=== PATIENT | female | born 1935 | race Caucasian/White ===

== ENCOUNTER 2020-05-03 02:50 | Inpatient (IN) | payer MEDICARE, SELFPAY ==
[~2020-05-03] VITALS: Ht 160 cm; Wt 55.8 kg
[2020-05-03] VITALS (12 sets, daily range): BP systolic 55–134; BP diastolic 17–87
--- NOTE | 2020-05-03 02:54 | NUR ---
PT BIBA AND TAKEN TO ER BED 8.
--- NOTE | 2020-05-03 03:05 | NUR ---
85 YR OLD FEMALE BROUGHT IN BY AMBULANCE TO THE ER WITH CHIEF COMPLAINT OF SHORTNESS OF BREATH. PT IS LETHARGIC AND NON-VERBAL. PATIENT IS UNABLE TO FOLLOW COMMANDS AND HAS A BLANK STARE. PATIENT HAS INCREASED WORK OF BREATHING WITH SHALLOW DEPTH. PATIENT HAS WHEEZES UPON EXPIRATION. SKIN IS COOL AND PALE. PATIENT HAS WEAK PULSES. BED IS LOCKED IN LOWEST POSITION WITH 2 SIDE RAILS UP FOR SAFETY. WILL CONTINUE TO MONITOR. HISTORY- HTN, CAD, HLD, CABG ALLERGIES- NARCAN, NSAIDS, NYSTATIN
--- NOTE | 2020-05-03 03:10 | NUR ---
RT AT BEDSIDE.
--- NOTE | 2020-05-03 03:20 | NUR ---
RT has placed pt on 15L NRB w/ 15L humidified NC. Pt current oxygen level 79%.
--- NOTE | 2020-05-03 03:25 | NUR ---
EKG PERFORMED AT BEDSIDE. EKG READS SINUS OR ECTOPIC ATRIAL RHYTHM @ 81
[2020-05-03] MEDS ORDERED: ASCO500W4 PO (03:33)
[2020-05-03] MEDS ORDERED: [UNRECOGNIZED DRUG - CODE] PO (03:33)
[2020-05-03] MEDS ORDERED: MAGN400S60 PO (03:33)
[2020-05-03] MEDS ORDERED: SENN-72 PO (03:33)
[2020-05-03] MEDS ORDERED: APIX5TAB4 PO (03:33)
[2020-05-03] MEDS ORDERED: ONDA4TAB PO (03:33)
[2020-05-03] MEDS ORDERED: MAA30 PO (03:33)
[2020-05-03] MEDS ORDERED: SAW/1TAB PO (03:33)
[2020-05-03] MEDS ORDERED: MONT10TA35 PO (03:33)
--- NOTE | 2020-05-03 03:50 | NUR ---
X-Ray at bedside.
[2020-05-03 03:56] LABS: APPEARANCE,URINE CLOUDY (CLEAR); BILIRUBIN,URINE NEGATIVE (NEGATIVE); BLOOD, URINE NEGATIVE (NEGATIVE); COLOR,URINE YELLOW (YELLOW); LEUKOCYTE ESTERASE ,URINE TRACE (NEGATIVE); NITRITE, URINE POSITIVE (NEGATIVE); UGLUCOSE NEGATIVE (NEGATIVE)
--- NOTE | 2020-05-03 04:00 | NUR ---
Per Dr. Lopes administer 1L Bolus at this time.
[2020-05-03 04:05] LABS: C-REACTIVE PROTEIN QUANT 16.6 mg/dL (0.0-0.9)
[2020-05-03 04:06] LABS: HEMATOCRIT 34.3 % (36-48); MEAN CORPUSCULAR HEMOGLOBIN 28 pg (27-31); MEAN CORPUSCULAR HGB CONC 32 g/dL (33-37); MEAN CORPUSCULAR VOLUME 88.2 fL (80-94); PLATELET COUNT (AUTO) 175 K/uL (140-450); RED BLOOD CELL COUNT(AUTO) 3.89 MIL/uL (4.20-5.40); RED CELL DISTRIBUTION WIDTH 26.2 % (11.6-13.7)
[2020-05-03 04:08] LABS: ALBUMIN 2.3 g/dL (3.4-5.0); ANION GAP 16.1 (8-16); ASPARTATE AMINOTRANSFERASE 41 U/L (15-37); CARBON DIOXIDE 21.8 mmol/L (21-32); CHLORIDE 110 mmol/L (98-107); CREATININE 1.2 mg/dL (0.6-1.3); GLUCOSE 164 mg/dL (74-106); SODIUM SERUM 146 mmol/L (136-145); TOTAL BILIRUBIN 0.4 mg/dL (0.0-1.0); UREA NITROGEN, BLOOD 32 mg/dL (7-18)
[2020-05-03 04:10] LABS: WHITE BLOOD COUNT (AUTO) 1.5 K/uL (4.8-10.8)
[2020-05-03 04:11] LABS: POTASSIUM 1.9 mmol/L (3.5-5.1)
[2020-05-03 04:12] LABS: LACTATE DEHYDROGENASE 355 U/L (81-234)
[2020-05-03 04:15] LABS: PROTHROMBIN TIME 12.1 secs (10.8-13.4)
[2020-05-03] MEDS ORDERED: DEXAMETHASONE 10 MG/ML VIAL IVP ONE (04:15)
[2020-05-03] MEDS ORDERED: AZITHROMYCIN 500 MG in DEXTROSE 5% 250 ML IV ONE (04:15)
[2020-05-03] MEDS ORDERED: KCL 20 MEQ/WATER INJ PREMIX 100 ML IV ONE (04:15)
[2020-05-03] MEDS ORDERED: NACL 0.9% 500 ML IV ONE (04:15)
[2020-05-03] MEDS ORDERED: AZITHROMYCIN 500 MG INJ VIAL IV ONE (04:20)
[2020-05-03] MEDS ORDERED: cefTRIAXone 1,000 MG VIAL ONE (04:20)
[2020-05-03 04:46] LABS: RSV NEGATIVE (NEGATIVE)
[2020-05-03] MEDS ORDERED: ASPIRIN 600 MG SUPP RC ONE (04:50)
[2020-05-03 04:54] LABS: LYMPHOCYTES % (MANUAL) 30 % (20-46)
--- NOTE | 2020-05-03 05:00 | NUR ---
PATIENT HAD BROWN LIQUID BOWEL. PERINEAL CARE PERFORMED. SKIN LEFT CLEANED AND DRY. WOUND PICTURES TAKEN ON SACRAL AREA. WOUND DRESSING APPLIED TO SACRAM AREA.
--- NOTE | 2020-05-03 05:24 | NUR ---
Dr. Lopes examining patient.
[2020-05-03] MEDS ORDERED: NOREPINEPHRINE 4 MG/4 ML VIAL IV ONE (05:28)
[2020-05-03 05:41] LABS: RBC,URINE 0-5 /HPF (0-5); WBC,URINE 0-5 /HPF (0-5)
[2020-05-03] MEDS ORDERED: NOREPINEPHRINE 4 MG in DEXTROSE 5% 250 ML IV ONE (06:05)
--- NOTE | 2020-05-03 06:05 | NUR ---
Levophed 4mg IV drip initiated at 2 mcg/min at this time.
[2020-05-03] MEDS ORDERED: ZOLPIDEM 5 MG TAB PO PRN (07:00)
[2020-05-03] MEDS ORDERED: ONDANSETRON 4 MG/2 ML VIAL IVP PRN (07:00)
[2020-05-03] MEDS ORDERED: DOCUSATE SODIUM 100 MG GELCAP PO PRN (07:00)
[2020-05-03] MEDS ORDERED: ALBUTEROL HFA MDI 90 MCG/ACTUATION 8 GM INH PRN (07:00)
[2020-05-03] MEDS ORDERED: ACETAMINOPHEN 325 MG TAB PO PRN (07:00)
[2020-05-03] MEDS ORDERED: HYDROcodone/APAP 5/325 MG 1 TAB TAB PO PRN (07:00)
[2020-05-03] MEDS ORDERED: HEPARIN PER PHARMACY MC PRN (07:00)
[2020-05-03] MEDS ORDERED: LORazepam 2 MG/ML VIAL IM/IVP PRN (07:00)
[2020-05-03] MEDS: NACL 0.9% 1,000 ML IV SCH ×2 (07:00→11:53)
[2020-05-03] MEDS ORDERED: MORPHINE SULFATE 2 MG/ML SYR IVP PRN (07:00)
--- NOTE | 2020-05-03 07:10 | NUR ---
Report provided to BECCA Jane for transfer of care.
[2020-05-03] MEDS ORDERED: hePARIN / DEXT 5% PREMIX 250 ML IV SCH (07:30)
--- NOTE | 2020-05-03 07:30 | NUR ---
PATIENT IS RESTING IN BED, 15L NON REBREATHER, 15L HUMIDIFIED OXYGEN. PATIENT IS NON VERBAL, SLIGHTLY ALERT. SKIN IS COOL, BRACHIAL PULSES ARE FAINT.
--- NOTE | 2020-05-03 07:59 | NUR ---
Dr. Muir is evaluating the patient at bedside.
--- NOTE | 2020-05-03 08:00 | NUR ---
Dr. Wild is evaluating the patient at bedside.
[2020-05-03] MEDS ORDERED: ZINC SULF 220 MG CAP PO SCH (09:00)
[2020-05-03] MEDS ORDERED: VITAMIN D 400 IU TAB PO SCH (09:00)
[2020-05-03] MEDS ORDERED: AZITHROMYCIN 250 MG TAB PO SCH (09:00)
[2020-05-03] MEDS ORDERED: ASCORBIC ACID 500 MG TAB PO SCH (09:00)
--- NOTE | 2020-05-03 09:13 | NUR ---
PATIENT HAS BEEN SCREENED AND CATEGORIZED HIGH NUTRITION RISK. PATIENT WILL BE SEEN WITHIN 1-2 DAYS OF ADMISSION. 05/03/20-05/04/[address]
--- NOTE | 2020-05-03 09:21 | NUR ---
Patient will be admitted to [facility]. Admited to ICU. Will go to room 129. Belongings list completed. Report to DM HUDSON.
--- NOTE | 2020-05-03 09:30 | NUR ---
PATIENT TRANSFERRED FROM ED TO ROOM 129B VIA GURNEY. PATIENT IS LETHARGIC, EYES OPEN,PUPIL 3 MM SLUGGISH, BUT DOES NOT FOLLOW COMMAND, NOR ABLE TO MAKE NEED KNOWN. SPO2 88% AT THIS TIME ON HIGH FLOW 15 LPM NON-REBREATHER AND 7 LPM VIA NC, RESPIRATION LABORED, SHALLOW AND TACHYPNEA. FLACC 0. IV ON LAC 20G, RUNNING 20 MCG/MIN LEVOPHED 4 MG, AND L WRIST 22G, RUNNING HEPARIN DRIP AT 600 UNIT/HR. SKIN WARM TO TOUCH, SACRAL WOUND COVERED WITH OPTIFOAM, DRY AND CLEAN, PURPLE DTI ON L FOOT NOTED, APPLIED PURPLE HEEL PROTECTORS. PATIENT IS INCONTINENT. GENERALIZED WEAKNESS ON BOTH UPPER AND LOWER EXTREMITIES. NON-PITTING EDEMA ON ARMS NOTED. ABDOMEN SOFT AND FLAT. ASSISTED TO POSITIONED PATIENT IN HIGH ORNELAS COMFORTABLY ON BED. CHANGED TO YELLOW GOWN, APPLIED FALL RISK PRECAUTION, ASPIRATION PRECAUTION, AND ENHANCED DROPLET PRECAUTION. TYPE CUTTER APPLIED. SAFETY MEASURES IN PLACE. BED IN LOW POSITION, CALL LIGHT WITHIN REACH.
[2020-05-03 10:49] LABS: ALBUMIN 2.5 g/dL (3.4-5.0); AMYLASE 29 U/L (25-115); ANION GAP 28.1 (8-16); ASPARTATE AMINOTRANSFERASE 47 U/L (15-37); CHLORIDE 118 mmol/L (98-107); CREATININE 1.3 mg/dL (0.6-1.3); GLUCOSE 173 mg/dL (74-106); HDL CHOLESTEROL 50 mg/dL (40-60); LDL (CALC) 38 mg/dL (60-100); LIPASE 118 U/L (73-393); MAGNESIUM 2.3 mg/dL (1.8-2.4); PHOSPHORUS 2.8 mg/dL (2.5-4.9); TOTAL BILIRUBIN 0.4 mg/dL (0.0-1.0); TRIGLYCERIDES 55 mg/dL (30-150); UREA NITROGEN, BLOOD 33 mg/dL (7-18)
--- NOTE | 2020-05-03 10:58 | NUR ---
SOCIAL WORK NOTE: Patient's Orientation Unable To Assess Information Provided By ERIN CASTILLO - STEPDAEVERTON Comments SW WAS UNABLE TO MEET PATIENT AT BEDSIDE. SW COMPLETED ASSESSMENT WITH PATIENT'S STEPDAUGHTER. PER STEPDAUGHTER, PATIENT IS AT [facility] FOR REHAB. PATIENT LIVED AT [facility]. Glove Examiner, Realtionship and Phone Number ERIN CASTILLO STEPDAUGHTER [phone] Healthcare Power of Sign Erector And Repairer No Does Patient Have a POLST No Identifying Problems No Social Work Triggers Is A Social Work Consult Needed No Mandate Report Filed No Explanation Of Identifying Problems PATIENT IS AN 85-YEAR-OLD FEMALE ADMITTED FOR SEPSIS AND ELEVATED TROPONIN. PATIENT HAS PMHX OF CARDIAC DISORDERS AND THYROID DISEASE. Admitted From Intermediate Facility Intermediate Facility [facility] - [phone] Pre-Admission Level Of Functioning Status Assist With ADL Level Of Functioning Comment PER STEPDAUGHTER, PATIENT RECEIVES ASSISTANCE FOR BATHING, SHOWERING, AND CLEANING. STEPDAUGHTER STATED THAT PATIENT PAYS FOR CAREGIVING PRIVATELY. Prior Resources/Services Used In Last 12 Months SNF Rehab/Skilled Prior Resources/Service Comments PATIENT IS A SKILLE PATIENT AT [facility]. Prior DME Walker Dialysis Comments N/A Patient Had Caregiver No Home Support No Caregiver Issues Financial Issues No Known Financial Issue Referral To The Financial Counselor Needed No Factors/Needs No D/C Needs Identified Pt/Rep Participated In Discharge Plan Yes Patient/Family Agress With Discharge Plan Yes Discharge Plan Comments TENTATIVE DISCHARGE PLAN IS FOR PATIENT TO RETURN TO [facility]. DC Plan Status Initiated
--- NOTE | 2020-05-03 11:31 | NUR ---
PER DR LEPE AND DR PAEZ, DUE TO PATIENT'S UNSTABLE CONDITION, HOLD PICC LINE INSERTION FOR NOW.
--- NOTE | 2020-05-03 11:55 | NUR ---
HELD AM SCHEDULED ORAL MEDS, IT IS NOT SAFE FOR PATIENT TO SWALLOW, AND PATIENT UNABLE TO FOLLOW COMMANDS, INFUSING NS AT 100 ML/HR.
[2020-05-03 11:59] LABS: POTASSIUM 2.1 mmol/L (3.5-5.1); SODIUM SERUM 157 mmol/L (136-145)
--- NOTE | 2020-05-03 12:06 | NUR ---
DISCHARGE PLANNING: THIS IS AN 85 Y/O FEMALE PATIENT BIBA FROM [facility], DUE TO SOB. PAST MEDICAL HISTORY INCLUDE HTN, CAD, HYPERLIPIDEMIA, CABG. INITIAL DIAGNOSIS OF SEPSIS AND ELEVATED TROPONIN. CURRENT LABS INCLUDE WBC 1.5, H/H 11.0/34.3, NA/K 157/2.1, BUN/CREA 33/1.3, LACTIC ACID 6.4, TROP 0.468, FIBRINOGEN 500 AND D DIMER 2600. RAPID COVID POSITIVE, PCR PENDING. ON 15 L NON REBREATHER, O2 SAT 88%. ON ROCEPHIN. ON HEPARIN DRIP. ON LEVOPHED DRIP BP 80/54. CARDIO AND PULMONARY CONSULT IN PLACE. DC PLAN BACK TO [facility] ONCE STABLE.
--- NOTE | 2020-05-03 12:10 | NUR ---
CRITICAL LAB POTASSIUM 2.1, DR LEPE MADE AWARE. ORDERED 80 MEQ K-RIDER. BMP ORDER AFTER 1ST 40 MEQ GIVEN, WILL INPUT BMP ORDER PER MD ORDER.
[2020-05-03] MEDS ORDERED: KCL 20 MEQ/WATER INJ PREMIX 200 ML IV ONE (12:15)
[2020-05-03] MEDS ORDERED: NOREPINEPHRINE 8 MG in DEXTROSE 5% 250 ML IV PRN (12:30)
[2020-05-03] MEDS ORDERED: NACL 0.9% 1,000 ML IV SCH (13:10)
--- NOTE | 2020-05-03 13:11 | NUR ---
DR SAMPSON IS ROUNDING ON PATIENT. ORDERED ABG STAT AND 1 L NS BOLUS. INPUT ORDERS PER MD ORDER.
--- NOTE | 2020-05-03 13:15 | NUR ---
1000 ML NS BOLUS ADMINISTERED
--- NOTE | 2020-05-03 13:20 | NUR ---
ABG IS UNOBTAINABLE AT THIS TIME DUE TO LOW B/P OF 66/21 AND O2 SAT OF 41 AND PT IS COLD TO TOUCH AND RN PATRICK NOTIFIED
[2020-05-03] MEDS: KCL 20 MEQ/WATER INJ PREMIX 200 ML IV PRN ×2 (13:26→18:27)
--- NOTE | 2020-05-03 13:26 | NUR ---
STARTED 40 MEQ FOR POTASSIUM 2.[address] LEPE ORDER. BMP WILL ORDER AFTER FINISH INFUSING.
--- NOTE | 2020-05-03 14:18 | NUR ---
RECEIVED CALL FROM PATIENT'S DAUGHTER ERIN, UPDATED ERIN WITH PATIENT'S CURRENT CONDITION, ERIN WAS AWARE.
--- NOTE | 2020-05-03 14:33 | NUR ---
DR LEYVA IS ROUNDING ON PATIENT AND TALKING TO DAUGHTER ERIN ON THE PHONE.
--- NOTE | 2020-05-03 15:18 | NUR ---
05/03/20 RD INITIAL ASSESSMENT COMPLETED PLEASE REFER TO NUTRITION ASSESSMENT UNDER CARE ACTIVITY FOR ESTIMATED NUTRITIONAL NEEDS. 1. RECOMMEND GROUND CARDIAC DIET IF PATIENT IMPROVES 2. RECOMMEND ENSURE BID IF TOLERATED 3. IF PATIENT BECOMES MEDICALLY STABLE CONSIDER TPN 4. RD TO FOLLOW-UP 2-3 DAYS, HIGH RISK IGNACIO DILLON, SUZETTE
--- NOTE | 2020-05-03 15:50 | NUR ---
RECEIVED LAB RESULT FROM [facility], PTT >150, PER PROTOCOL WILL STOP HEPARIN DRIP FOR AN HOUR. SAFETY MEASURES IN PLACE, BED IN LOW POSITION, WILL CONTINUE TO MONITOR
--- NOTE | 2020-05-03 17:05 | NUR ---
RESUMED HEPARIN DRIP PER PROTOCOL, DECREASE FROM 600 TO 250 UNITS/ HOUR, WILL MONITOR FOR S/S OF BLEEDING, SAFETY MEASURES IN PLACE, BED IN LOW POSITION, WILL CONTINUE TO MONITOR.
[2020-05-03 17:51] LABS: ANION GAP 16.3 (8-16); CARBON DIOXIDE 17.3 mmol/L (21-32); CHLORIDE 111 mmol/L (98-107); CREATININE 1.8 mg/dL (0.6-1.3); GLUCOSE 118 mg/dL (74-106); SODIUM SERUM 142 mmol/L (136-145); UREA NITROGEN, BLOOD 36 mg/dL (7-18)
[2020-05-03 18:23] LABS: POTASSIUM 2.6 mmol/L (3.5-5.1)
--- NOTE | 2020-05-03 18:27 | NUR ---
POTASSIUM RECHECK RECEIVED 2.6, ANOTHER 40 MEQ POTASSIUM WILL BE GIVEN.
--- NOTE | 2020-05-03 19:14 | NUR ---
CHECKED ON PATIENT, NO PULSE FOUND MANUALLY OR WITH DOPPLER, WENT TO DIAGRAMMER TO CONFIRM, EKG SHOWS PATIENT WAS ASYSTOLE.
--- NOTE | 2020-05-03 19:26 | NUR ---
ENDORSE TO NIGHT NURSEPIETER FOR POSTMORTEM OF CARE.
--- NOTE | 2020-05-03 20:34 | NUR ---
PT WAS PRONOUNCED AT 1914. ADMITTING (ROGERS PAEZ) AND ATTENDING (DR LEPE) NOTIFIED. CALLED [employer]CHOOL BUS ATTENDANT AND AWAITING CALL BACK. CALLED [employer], AND PER [employer] (AMBER CARBAJAL), THEY WILL NOT BE MOVING FORWARD. CALLED FAMILY, STEP DAUGHTER ERIN CASTILLO AND UPDATED ON PT . PER ERIN, AWAITING CALL BACK FROM FAMILY FOR CONFIRMATION OF MORTUARY.
--- NOTE | 2020-05-03 22:17 | NUR ---
DEBUBBLIZER (MERRY RENE) CALLED BACK, NO CASE NUMBER AND RELEASED THE BODY. PT FAMILY CALLED BACK. [facility], [id number], [id number]. [phone]. CALLED MORTUARY AND WILL SEND A RFP WRITER IN A FEW HOURS.
--- NOTE | 2020-05-04 00:04 | NUR ---
PT CLEANED AND TRANSFERRED TO THE [facility].
== END 2020-05-03 19:14 | DRG 871 ==
LOC: MED 02:50 → MTU 06:21 → MMU 08:07
PROVIDERS: ADMIT Family Medicine; ATTEND Family Medicine
DX: A41.9 Sepsis, unspecified organism (principal); R65.21 Severe sepsis with septic shock; J96.01 Acute respiratory failure with hypoxia; U07.1 COVID-19; J12.82 Pneumonia due to coronavirus disease 2019; N17.0 Acute kidney failure with tubular necrosis; D61.818 Other pancytopenia; N39.0 Urinary tract infection, site not specified; I48.20 Chronic atrial fibrillation, unspecified; E87.0 Hyperosmolality and hypernatremia; Z95.1 Presence of aortocoronary bypass graft; Z88.5 Allergy status to narcotic agent; Z88.8 Allergy status to other drugs, medicaments and biological substances; I25.10 Atherosclerotic heart disease of native coronary artery without angina pectoris; Z95.2 Presence of prosthetic heart valve; Z88.6 Allergy status to analgesic agent; I46.9 Cardiac arrest, cause unspecified; B34.9 Viral infection, unspecified; E87.6 Hypokalemia; R77.8 Other specified abnormalities of plasma proteins; Z95.4 Presence of other heart-valve replacement; Z66 Do not resuscitate; I50.9 Heart failure, unspecified; E78.5 Hyperlipidemia, unspecified
CPT/HCPCS: 36415; 71045; 80048; 80053; 81001; 82150; 82550; 82728; 83036; 83605; 83615; 83690; 83735; 83880; 84100; 84439; 84443; 84484; 85025; 85379; 85384; 85610; 85730; 86140; 87040; 87081; 87086; 87420; 87804; 93005; 96365; 99291; J0456; J0696; J1100; J1644; J3480; J3490; J7030; J7060; U0003